=== PATIENT | male | born 1955 | race Caucasian/White ===

== ENCOUNTER 2022-10-07 17:47 | Emergency (ER) | payer MEDICARE ==
[~2022-10-07] VITALS: Ht 182.9 cm; Wt 79.4 kg
[~2022-10-07 17:47] MED LIST: ACET325 PO; AZIT500 PO; BACL10 PO; BISA10S PR; BUPR150ER PO; CEFP200 PO; CEPH500 PO; CLARITIN10 MG PO; CONCERTA; DIPH50 PO; ESOM20; Flovent 110 MCG12 GM INH; HYDACE5 PO; HYDACE7.5 PO; Hydrocodone-Ap1 EA23 PO; IBUP800 PO; METF500C PO; METH5 PO; METPRE4DP PO; ONDA4ODT MM; PREDNISONE PO; Pepcid40 MG PO; ROBITUSSIN COU237 ML PO; SACC250C PO; SIMV10 PO; Ventolin5 MG/1 ML INH
[2022-10-07] MEDS ORDERED: MONDOXYNE NL100 MG PO (17:57)
== END 2022-10-07 18:18 | disposition home or self-care (01) ==
LOC: ER 17:47
DX: S61.052A Open bite of left thumb without damage to nail, initial encounter (principal); Z87.891 Personal history of nicotine dependence; W55.01XA Bitten by cat, initial encounter
CPT/HCPCS: 90471; 90714; 99282-25